=== PATIENT | female | born 1970 | race American Indian/Alaskan Native ===

== ENCOUNTER 2020-09-19 21:59 | Emergency (ER) | payer OTHER ==
--- NOTE | 2020-09-19 23:42 | Event Note ---
ED Screening Note Date of service: 09/19/20 Time: 23:40 ED Screening Note: 50-year-old female patient presents to the emergency department with complaints of nontraumatic right lower back/right flank pain starting 2 days ago. Patient states she has experienced similar symptoms before, on 2 separate occasions, but this episode is more severe and lasting longer than the others. No known history of kidney stones. Denies fever, chills, nausea, vomiting, diarrhea, constipation, urinary symptoms, vaginal bleeding, vaginal discharge, rash. Denies all other complaints at this time. Tachycardic in triage. General: Awake, appropriately interactive, no acute distress. Neck: Supple. Full range of motion intact. Cardiovascular: Tachycardic. Normal peripheral perfusion. Pulmonary: No respiratory distress. Patient is speaking normally without use of accessory muscles. Skin: No apparent rashes or lesions. Neurological: No facial asymmetry. Speech is clear. Follows commands. Patient is alert and oriented. Musculoskeletal: Moves all four extremities spontaneously with normal range of m otion. Back: Right CVA/right flank tenderness. Psych: Cooperative. Appropriate mood and affect. I have greeted and performed a focused rapid initial assessment of this patient. A comprehensive ED assessment and evaluation of the patient, analysis of all test results, and completion of the medical decision-making process will be conducted by additional ED providers. This initial assessment/diagnostic orders/clinical plan/treatment(s) is/are subject to change based on patients health status, clinical progression and re-assessment. Further treatment and workup at subsequent clinical provider's discretion. Patient/guardian urged not to elope from the ED as their condition may be serious if not clinically assessed and managed.
[2020-09-20 00:09] LABS: Basophils % (Auto) 0.3 % (0.0-1.8); Eosinophils % (Auto) 0.3 % (0.0-4.3); Hematocrit 32.5 % (30.3-42.9); Lymphocytes # (Auto) 2.9 K/mm3 (1.2-5.4); Lymphocytes % (Auto) 35.4 % (13.4-35.0); Mean Corpuscular HGB Conc 34 % (30-34); Mean Corpuscular Volume 76 fl (79-97); Platelet Count 270 K/mm3 (140-440); Red Blood Count 4.27 M/mm3 (3.65-5.03); Red Cell Distribution Width 13.6 % (13.2-15.2)
[2020-09-20 00:11] LABS: Bilirubin,Urine NEG (Negative); Blood,Urine NEG (Negative); Color,Urine Yellow (Yellow); Mucus,Urine 2+ /HPF
[2020-09-20 00:32] LABS: Alanine Aminotransferase 21 units/L (7-56); Albumin 4.4 g/dL (3.9-5); Blood Urea Nitrogen 14 mg/dL (7-17); Calcium 9.7 mg/dL (8.4-10.2); Hemolysis Index 1
[2020-09-20 00:34] LABS: BUN/Creatinine Ratio 35
--- NOTE | 2020-09-20 04:57 | Cat Scan Report ---
CT ABDOMEN AND PELVIS WITHOUT CONTRAST HISTORY: RIGHT lower back / flank and right pelvic pain x 2 days.. COMPARISON: None. TECHNIQUE: CT images of the abdomen and pelvis were obtained without administration of intravenous co ntrast. All CT scans at this location are performed using CT dose reduction for ALARA by means of au tomated exposure control. FINDINGS: Lungs/bones: Clear lung bases. No acute colonic abnormality. Abdomen/pelvis: The liver, gallbladder, spleen, pancreas, adrenals, kidneys, and proximal GI tract a ppear unremarkable. A small vague right ovarian cyst is present. No pelvic free fluid or acute colonic abnormality identi fied. IMPRESSION: 1. Very small right ovarian cyst. Otherwise nothing acute on this limited noncontrast exam. Signer Name: Dwayne Almonte MD Signed: 09/20/2020 4:52 AM Workstation Name: [id number]
--- NOTE | 2020-09-20 05:24 | Emergency Department Report ---
ED Abdominal Pain HPI - General Chief Complaint: Abdominal Pain Stated Complaint: SHARP RIGHT SIDE PAIN Time Seen by Provider: 09/20/20 03:30 Source: patient Mode of arrival: Ambulatory Limitations: No Limitations - History of Present Illness MD Complaint: abdominal pain -: days(s) (2) Location: R flank Radiation: none Migration to: no migration Severity: mild, moderate, severe Quality: sharp, dull Consistency: constant Improves With: nothing Worsens With: nothing Associated Symptoms: dysuria (With increased urgency and frequency), other. denies: hematemesis, hematochezia, melena, anorexia, syncope - Related Data Previous Rx's Medication Instructions Recorded Last Taken Type Ketorolac [Toradol] 10 mg PO Q6H PRN #10 tablet 09/20/20 Unknown Rx Allergies Allergy/AdvReac Type Severity Reaction Status Date / Time No Known Allergies Allergy Unverified 09/19/20 23:44 ED Review of Systems ROS: Stated complaint: SHARP RIGHT SIDE PAIN Other details as noted in HPI Comment: All other systems reviewed and negative ED Past Medical Hx - Past Medical History Previous Medical History?: No - Surgical History Past Surgical History?: No - Social History Smoking Status: Never Smoker Substance Use Type: None - Medications Home Medications: Home Medications Medication Instructions Recorded Confirmed Last Taken Type Ketorolac [Toradol] 10 mg PO Q6H PRN #10 tablet 09/20/20 Unknown Rx ED Physical Exam - General Limitations: No Limitations General appearance: alert, in no apparent distress - Head Head exam: Present: atraumatic, normocephalic - Eye Eye exam: Present: normal appearance - ENT ENT exam: Present: mucous membranes moist - Neck Neck exam: Present: normal inspection - Respiratory Respiratory exam: Present: normal lung sounds bilaterally. Absent: respiratory distress - Cardiovascular Cardiovascular Exam: Present: regular rate, normal rhythm. Absent: systolic murmur, diastolic murmur, rubs, gallop - GI/Abdominal GI/Abdominal exam: Present: tenderness (Pain to the right hypochondriac region with light palpation. CVA tenderness is also noted on the right side. No rebound is noted. Abdomen soft) - Extremities Exam Extremities exam: Present: normal inspection, normal capillary refill - Back Exam Back exam: Present: normal inspection, CVA tenderness (R). Absent: CVA tenderness (L), paraspinal tenderness - Neurological Exam Neurological exam: Present: alert, oriented X3, CN II-XII intact - Psychiatric Psychiatric exam: Present: normal affect, normal mood - Skin Skin exam: Present: warm, dry, intact, normal color. Absent: rash ED Course Vital Signs 09/19/20 23:36 Temperature 98.6 F Pulse Rate 116 H Respiratory 18 Rate Blood Pressure 155/83 O2 Sat by Pulse 98 Oximetry ED Medical Decision Making - Lab Data Result diagrams: 09/19/20 23:44 09/19/20 23:44 - Radiology Data Radiology results: report [facility] [address] [place] [id number] Cat Scan Report Signed Patient: RADHA HALL MR#: [id number] [birth year] : 1970 Acct:[id number] Age/Sex: 50 / F ADM Date: 09/19/20 Loc: ED Attending Dr: Ordering Physician: LEO JADE Date of Service: 09/20/20 Procedure(s): CT abdomen pelvis wo con Accession Number(s): [id number] cc: LEO JADE CT ABDOMEN AND PELVIS WITHOUT CONTRAST HISTORY: RIGHT lower back / flank and right pelvic pain x 2 days.. COMPARISON: None. TECHNIQUE: CT images of the abdomen and pelvis were obtained without administration of intravenous contrast. All CT scans at this location are performed using CT dose reduction for ALARA by means of automated exposure control. FINDINGS: Lungs/bones: Clear lung bases. No acute colonic abnormality. Abdomen/pelvis: The liver, gallbladder, spleen, pancreas, adrenals, kidneys, and proximal GI tract appear unremarkable. A small vague right ovarian cyst is present. No pelvic free fluid or acute colonic abnormality identified. IMPRESSION: 1. Very small right ovarian cyst. Otherwise nothing acute on this limited noncontrast exam. Signer Name: Dwayne Almonte MD Signed: 09/20/2020 4:52 AM Workstation Name: [id number] Transcribed By: RODRIGO Dictated By: Dwayne Almonte MD Electronically Authenticated By: Dwayne Almonte MD Signed Date/Time: 09/20/20451 DD/ 0 TD/TT: Print - Medical Decision Making This patient presents with abdominal pain of what appears to be a ovarian. A CT scan was performed to evaluate for potential causes of the abdominal pain, however, neither the clinical exam nor the CT has identified an emergent etiology for the abdominal pain. Specifically, given the benign exam, the laboratory studies, and unremarkable CT, I have a very low suspicion for appendicitis, ischemic bowel, bowel perforation, or any other life threatening disease. I have discussed with the patient the level of uncertainty with undifferentiated abdominal pain and clearly explained the need to follow-up as noted on the discharge instructions, or return to the Emergency Department immediately if the pain worsens, develops fever, persistent and uncontrollable vomiting, or for any new symptoms or concerns. Critical care attestation.: If time is entered above; I have spent that time in minutes in the direct care of this critically ill patient, excluding procedure time. ED Disposition Clinical Impression: Ovarian cyst Disposition: - TO HOME OR SELFCARE Is pt being admited?: No Does the pt Need Aspirin: No Condition: Stable Instructions: Ovarian Cyst, [id number], Ovarian Cyst, Abdominal Pain (ED) Prescriptions: Ketorolac [Toradol] 10 mg PO Q6H PRN #10 tablet PRN Reason: Pain Referrals: [facility] [Provider Group] - 3-5 Days [facility], [Primary Care Provider] - 3-5 Days
[2020-09-20 05:46] VITALS: BP 134/76
== END 2020-09-20 05:50 | disposition home or self-care (01) ==
LOC: ED 21:59
DX: N83.201 Unspecified ovarian cyst, right side (principal); Z79.899 Other long term (current) drug therapy
CPT/HCPCS: 36415; 74176; 80053; 81001; 83735; 84703; 85025